=== PATIENT | female | born 1995 | race Two or more races ===

== ENCOUNTER 2017-05-14 18:13 | Outpatient (CLI) | payer MEDICAID ==
[~2017-05-14] VITALS: Ht 147.3 cm; Wt 64.5 kg
[~2017-05-14 18:13] MED LIST: ONDA4TAB10 PO; PREN1TAB47 PO
[2017-05-14 18:50] VITALS: BP 104/57
== END 2017-05-14 20:08 | disposition home or self-care (01) ==
LOC: LDOP 18:13
PROVIDERS: ATTEND Obstetrics & Gynecology
DX: O26.892 Other specified pregnancy related conditions, second trimester (principal); R10.9 Unspecified abdominal pain; Z3A.27 27 weeks gestation of pregnancy
CPT/HCPCS: 59025; 81001; 87086; 99201; G0463

== ENCOUNTER 2017-07-18 10:56 | Outpatient (CLI) | payer MEDICAID ==
[~2017-07-18] VITALS: Ht 147.3 cm; Wt 70.5 kg
[2017-07-18 11:11] VITALS: BP 119/67
[2017-07-18 13:21] LABS: BASOPHILS # (AUTO) 0.03 x10^3/uL (0-0.1); BASOPHILS % (AUTO) 0 % (0-1); EOSINOPHILS % (AUTO) 0 % (1-7); LYMPHOCYTES # (AUTO) 0.92 x10^3/uL (1-3.4); LYMPHOCYTES % (AUTO) 13 % (22-44); MD NO; MEAN CORPUSCULAR HEMOGLOBIN 28.2 pg (27.0-34.8); MEAN CORPUSCULAR HGB CONC 32.8 g/dL (32.4-35.8); MEAN CORPUSCULAR VOLUME 85.9 fL (80-100); MEAN PLATELET VOLUME 9.5 fL (7.4-10.4); MONOCYTES # (AUTO) 0.56 x10^3/uL (0.2-0.8); MONOCYTES % (AUTO) 8 % (2-9); NEUTROPHILS # (AUTO) 5.62 x10^3/uL (1.8-6.8); NEUTROPHILS % (AUTO) 79 % (42-75); PLATELET COUNT 197 x10^3/uL (130-400); RED BLOOD COUNT 4.04 x10^6/uL (3.82-5.3); RED CELL DISTRIBUTION WIDTH 14.5 % (9.6-15.2)
[2017-07-18 13:31] LABS: ALANINE AMINOTRANSFERASE 12 U/L (12-78); ALBUMIN 2.4 g/dL (3.4-5.0); ANION GAP 8 mmol/L (5-15); CALCIUM 8.2 mg/dL (8.5-10.1); CHLORIDE 108 mmol/L (98-107); CREATININE 0.49 mg/dL (0.55-1.02)
[2017-07-18 13:32] LABS: CULTURE INDICATED? YES; MICROSCOPIC INDICATED
[2017-07-18 13:33] LABS: ALKALINE PHOSPHATASE 163 U/L (45-117); BILIRUBIN,TOTAL 0.4 mg/dL (0.2-1.0); TOTAL PROTEIN 6.7 g/dL (6.4-8.2)
[2017-07-18 13:50] LABS: RAPID INFLUENZA A POSITIVE (Negative); RAPID INFLUENZA B Negative (Negative)
== END 2017-07-18 14:46 | disposition home or self-care (01) ==
LOC: LDOP 10:56
PROVIDERS: ATTEND Obstetrics & Gynecology
DX: O42.913 Preterm premature rupture of membranes, unspecified as to length of time between rupture and onset of labor, third trimester (principal); Z3A.36 36 weeks gestation of pregnancy
CPT/HCPCS: 36415; 59025; 80053; 81001; 85025; 87086; 87400; 89060; 99211; G0463; Q0114

== ENCOUNTER 2017-08-03 04:54 | Inpatient (IN) | payer MEDICAID ==
[~2017-08-03] VITALS: Ht 147.3 cm; Wt 71.4 kg
[2017-08-03] MEDS ORDERED: NEWBORN KIT ONE (04:56)
[2017-08-03] MEDS ORDERED: OXYTOCIN 30U/ 0.9% NaCL 500ML 500 ML IV PRN (04:57)
[2017-08-03] MEDS ORDERED: OXYTOCIN 30U/ 0.9% NaCL 500ML 500 ML ONE (04:57)
[2017-08-03] MEDS: D5%-LACTATED RINGERS 1,000 ML IV SCH ×3 (04:57→20:34)
[2017-08-03] MEDS ORDERED: OXYTOCIN 30U/ 0.9% NaCL 500ML 500 ML IV ONE (04:57)
[2017-08-03] MEDS ORDERED: PENICILLIN GK 5,000,000 UNITS in DEXTROSE 5% 100 ML IVPB ONE (05:00)
[2017-08-03] MEDS ORDERED: ONDANSETRON 2MG/ML, 2ML IVPush PRN ×2 (05:00→11:30)
[2017-08-03] MEDS ORDERED: TERBUTALINE 1 MG/ML, 1ML IVPush PRN (05:00)
[2017-08-03] MEDS ORDERED: CALCIUM CARBONATE 500 MG TAB.CHEW PO PRN (05:00)
[2017-08-03] MEDS ORDERED: SODIUM CITRATE/CITRIC ACID 30 ML UDC PO PRN (05:00)
[2017-08-03] MEDS ORDERED: FENTANYL PF 100 MCG/2ML IVPush PRN (05:00)
[2017-08-03] MEDS ORDERED: FENTANYL PF 100 MCG/2ML IV PRN (05:00)
[2017-08-03] MEDS ORDERED: METOCLOPRAMIDE 5 MG/ML, 2ML IVPush PRN (05:00)
[2017-08-03] MEDS: LACTATED RINGERS 1,000 ML IV SCH ×2 (05:29→12:57)
[2017-08-03 05:51] LABS: BASOPHILS # (AUTO) 0.03 x10^3/uL (0-0.1); BASOPHILS % (AUTO) 0 % (0-1); EOSINOPHILS # (AUTO) 0.09 x10^3/uL (0-0.4); EOSINOPHILS % (AUTO) 1 % (1-7); LYMPHOCYTES # (AUTO) 2.31 x10^3/uL (1-3.4); LYMPHOCYTES % (AUTO) 32 % (22-44); MD NO; MEAN CORPUSCULAR HEMOGLOBIN 27.5 pg (27.0-34.8); MEAN CORPUSCULAR HGB CONC 32.6 g/dL (32.4-35.8); MEAN CORPUSCULAR VOLUME 84.3 fL (80-100); MEAN PLATELET VOLUME 9.9 fL (7.4-10.4); MONOCYTES # (AUTO) 0.64 x10^3/uL (0.2-0.8); MONOCYTES % (AUTO) 9 % (2-9); NEUTROPHILS # (AUTO) 4.28 x10^3/uL (1.8-6.8); NEUTROPHILS % (AUTO) 58 % (42-75); PLATELET COUNT 220 x10^3/uL (130-400); RED BLOOD COUNT 3.98 x10^6/uL (3.82-5.3); RED CELL DISTRIBUTION WIDTH 15.1 % (9.6-15.2)
[2017-08-03 05:53] VITALS: BP 123/76
[2017-08-03] MEDS: PENICILLIN GK 2,500,000 UNITS in DEXTROSE 5% 100 ML IV SCH ×4 (09:45→21:52)
[2017-08-03] MEDS ORDERED: BUPIVACAINE 0.25% ONE (10:35)
[2017-08-03] MEDS ORDERED: FENTANYL PF 100 MCG/2ML ONE (10:35)
[2017-08-03] MEDS ORDERED: FENTANYL/BUPIV./NS/PF 250 ML EPIDCONT ONE (10:36)
[2017-08-03] MEDS ORDERED: LIDOCAINE/PF 1.5%-EPI 1:200K, 30ML ONE (10:40)
[2017-08-03] MEDS ORDERED: FENTANYL/BUPIV./NS/PF 250 ML EPIDCONT SCH (11:09)
[2017-08-03] MEDS ORDERED: LACTATED RINGERS 1,000 ML IV SCH (11:09)
[2017-08-03] MEDS ORDERED: LACTATED RINGERS 1,000 ML IVBOLUS PRN (11:30)
[2017-08-03] MEDS ORDERED: EPHEDRINE 50 MG/ML, 1ML IVPush PRN (11:30)
[2017-08-03] MEDS ORDERED: ACETAMINOPHEN 325 MG TABLET ONE (20:28)
[2017-08-03] MEDS ORDERED: ACETAMINOPHEN 325 MG TABLET PO ONE (20:30)
[2017-08-04] MEDS ORDERED: IBUPROFEN 600 MG TABLET ONE (00:56)
[2017-08-04] MEDS ORDERED: ONDANSETRON 2MG/ML, 2ML IV PRN (01:00)
[2017-08-04] MEDS ORDERED: METHYLERGONOVINE 0.2 MG/ML IM PRN (01:00)
[2017-08-04] MEDS ORDERED: MISOPROSTOL 200 MCG TABLET PR PRN (01:00)
[2017-08-04] MEDS ORDERED: OXYcodone/APAP 5/325MG TABLET PO PRN (01:00)
[2017-08-04] MEDS ORDERED: CALCIUM CARBONATE 500 MG TAB.CHEW PO PRN (01:00)
[2017-08-04] MEDS: IBUPROFEN 600 MG TABLET PO PRN ×3 (01:00→19:24)
[2017-08-04] MEDS ORDERED: OXYTOCIN 30U/ 0.9% NaCL 500ML 500 ML ONE (01:48)
[2017-08-04] MEDS: OXYTOCIN 30U/ 0.9% NaCL 500ML 500 ML IV SCH ×3 (01:56→20:46)
[2017-08-04 03:00] VITALS: BP 117/59
[2017-08-04 08:49] LABS: MEAN CORPUSCULAR HEMOGLOBIN 27.8 pg (27.0-34.8); MEAN CORPUSCULAR HGB CONC 32.7 g/dL (32.4-35.8); MEAN PLATELET VOLUME 9.9 fL (7.4-10.4); PLATELET COUNT 192 x10^3/uL (130-400); RED BLOOD COUNT 3.53 x10^6/uL (3.82-5.3); RED CELL DISTRIBUTION WIDTH 15.8 % (9.6-15.2)
[2017-08-04 08:53] VITALS: BP 116/59
[2017-08-04] MEDS: DOCUSATE 100 MG CAPSULE PO PRN ×2 (08:54→19:24)
[2017-08-04] MEDS: PRENATAL VIT/IRON/FA 1 EACH TABLET PO SCH (08:54)
[2017-08-04 09:31] LABS: BASOPHILS # (AUTO) 0.07 x10^3/uL (0-0.1); BASOPHILS % (AUTO) 0 % (0-1); EOSINOPHILS # (AUTO) 0.05 x10^3/uL (0-0.4); EOSINOPHILS % (AUTO) 0 % (1-7); LYMPHOCYTES # (AUTO) 2.24 x10^3/uL (1-3.4); LYMPHOCYTES % (AUTO) 12 % (22-44); MD SCAN; MONOCYTES # (AUTO) 1.16 x10^3/uL (0.2-0.8); MONOCYTES % (AUTO) 6 % (2-9); NEUTROPHILS # (AUTO) 15.64 x10^3/uL (1.8-6.8); NEUTROPHILS % (AUTO) 82 % (42-75)
[2017-08-04 12:39] VITALS: BP 117/67
[2017-08-04 17:02] VITALS: BP 115/63
[2017-08-04 19:20] VITALS: BP 126/78
[2017-08-05 00:10] VITALS: BP 125/69
[2017-08-05] MEDS: IBUPROFEN 600 MG TABLET PO PRN ×2 (06:04→17:54)
[2017-08-05 07:32] VITALS: BP 110/70
[2017-08-05] MEDS: PRENATAL VIT/IRON/FA 1 EACH TABLET PO SCH (07:32)
[2017-08-05] MEDS: DOCUSATE 100 MG CAPSULE PO PRN (07:32)
[2017-08-05] MEDS: OXYcodone/APAP 5/325MG TABLET PO PRN ×2 (07:45→17:54)
[2017-08-05 19:25] VITALS: BP 111/63
[2017-08-06] MEDS: OXYcodone/APAP 5/325MG TABLET PO PRN ×2 (00:53→10:22)
[2017-08-06] MEDS: IBUPROFEN 600 MG TABLET PO PRN ×2 (00:53→10:23)
[2017-08-06 07:30] VITALS: BP 112/70
[2017-08-06] MEDS: DOCUSATE 100 MG CAPSULE PO PRN (10:22)
[2017-08-06] MEDS: PRENATAL VIT/IRON/FA 1 EACH TABLET PO SCH (10:22)
[2017-08-06] MEDS ORDERED: IBUP-1222 PO (10:49)
[2017-08-06] MEDS ORDERED: OXYC-302 PO (10:49)
[2017-08-06] MEDS ORDERED: DOCU-131 PO (10:50)
[2017-08-06] MEDS ORDERED: FERR324T18 PO (10:51)
== END 2017-08-06 12:30 | disposition home or self-care (01) | DRG 775 ==
LOC: LDIP 04:54 → 2NW 08-04 02:29
PROVIDERS: ADMIT Obstetrics & Gynecology; ATTEND Obstetrics & Gynecology
PROC: 10H07YZ Insertion of Other Device into Products of Conception, Via Natural or Artificial Opening (ICD-10-PCS; principal; 2017-08-04)
PROC: 10E0XZZ Delivery of Products of Conception, External Approach (ICD-10-PCS; 2017-08-04)
PROC: 3E0R3BZ Introduction of Anesthetic Agent into Spinal Canal, Percutaneous Approach (ICD-10-PCS; 2017-08-04)
PROC: 00HU33Z Insertion of Infusion Device into Spinal Canal, Percutaneous Approach (ICD-10-PCS; 2017-08-04)
PROC: 10907ZC Drainage of Amniotic Fluid, Therapeutic from Products of Conception, Via Natural or Artificial Opening (ICD-10-PCS; 2017-08-04)
PROC: 3E033VJ Introduction of Other Hormone into Peripheral Vein, Percutaneous Approach (ICD-10-PCS; 2017-08-04)
DX: O76 Abnormality in fetal heart rate and rhythm complicating labor and delivery (principal); O69.81X0 Labor and delivery complicated by cord around neck, without compression, not applicable or unspecified; Z37.0 Single live birth; O99.824 Streptococcus B carrier state complicating childbirth; Z3A.39 39 weeks gestation of pregnancy; O71.89 Other specified obstetric trauma
CPT/HCPCS: 36415; 82803; 85025; 86850; 86900; J2540; J3010; J3490; J2590; J7120; J7121

== ENCOUNTER 2020-07-31 21:30 | Emergency (ER) | payer MEDICAID ==
[~2020-07-31] VITALS: Ht 147.3 cm; Wt 69.5 kg
[~2020-07-31 21:30] MED LIST changes: +DOCU-131 PO; +FERR324T18 PO; +IBUP-1222 PO; +OXYC-302 PO; -PREN1TAB47 PO; +PRENATAL ONE T1 EACH PO
[2020-07-31] MEDS ORDERED: FAMOTIDINE 20 MG TABLET ONE (21:49)
[2020-07-31] MEDS ORDERED: DIPHENHYDRAMINE 25 MG CAPSULE ONE (21:49)
[2020-07-31] MEDS ORDERED: EPINEPHRINE 1 MG/ML, 1ML ONE (21:49)
--- NOTE | 2020-07-31 21:58 | NUR ---
MEDS ADMIN PER SEP. PT DENIES THROAT SWELLING, TROUBLE BREATHING. PT CONNECTED TO MONITORING.
[2020-07-31] MEDS ORDERED: DIPHENHYDRAMINE 25 MG CAPSULE PO ONE (22:00)
[2020-07-31] MEDS ORDERED: FAMOTIDINE 20 MG TABLET PO ONE (22:00)
[2020-07-31] MEDS ORDERED: EPINEPHRINE 1 MG/ML, 1ML SQ ONE (22:00)
--- NOTE | 2020-07-31 22:31 | NUR ---
PT STATES SHE FEELS BETTER. NO ITCHING. CHART UP FOR RECHECK.
[2020-07-31 22:32] VITALS: BP 107/67
== END 2020-07-31 22:59 | disposition home or self-care (01) ==
LOC: ED 22:00
DX: T78.40XA Allergy, unspecified, initial encounter (principal); L50.9 Urticaria, unspecified; X58.XXXA Exposure to other specified factors, initial encounter
CPT/HCPCS: 96372; 99284; J0171; J7512; Q0163

== ENCOUNTER 2020-08-08 12:31 | Emergency (ER) | payer MEDICAID ==
[~2020-08-08] VITALS: Ht 147.3 cm; Wt 66.5 kg
[~2020-08-08 12:31] MED LIST changes: -OXYC-302 PO; +OXYC1TAB14 PO
--- NOTE | 2020-08-08 13:16 | NUR ---
PT AMBULATORY TO ROOM 14 W/ C/O "I'M AND I'M CRAMPING AND BLEEDING BRIGHT RED". 6 WEEKS . LMP 07/02/2020. A0. PT CURRENTLY RESTING ON [employer]. WARM BLANKET PROVIDED.
[2020-08-08 13:43] LABS: MICROSCOPIC NOT IND
--- NOTE | 2020-08-08 14:16 | NUR ---
PT RESTING ON GURNEY. NADN. GASPAR.
--- NOTE | 2020-08-08 14:22 | NUR ---
PT CHART REVIEWED AND PLACED FOR RECHECK.
[2020-08-08 15:15] VITALS: BP 115/64
--- NOTE | 2020-08-08 15:17 | NUR ---
THIS FLOAT RN AT BEDSIDE TO DC PT FOR PRIMARY RN, ELENO. MISCARRIAGE BUNDLE PROVIDED TO PATIENT AND SPOUSE. SPIRITUAL CARE CONSULT DISCUSSED - PT AND SPOUSE INTERESTED. ORDERED PER PROTOCOL. PT AMBULATORY TO CHECKOUT C STEADY GAIT. VSS.
== END 2020-08-08 15:19 | disposition home or self-care (01) ==
LOC: ED 15:00
DX: O03.9 Complete or unspecified spontaneous abortion without complication (principal); R11.0 Nausea
CPT/HCPCS: 36415; 76801; 81003; 84702; 99284

== ENCOUNTER 2020-08-14 19:38 | Observation (INO) | payer MEDICAID ==
[~2020-08-14] VITALS: Ht 147.3 cm; Wt 67.5 kg
--- NOTE | 2020-08-14 20:38 | NUR ---
Patient presents to ER c/o abd cramping since Monday after a miscarriage. Patient states she has been able to reduce the pain with ibuprofen until today when she has been unable. She also started having N/V today. Denies nausea at this time. Patient is in NAD. Respirations even and unlabored.
[2020-08-14] MEDS ORDERED: KETOROLAC 30 MG/1 ML ONE (20:40)
[2020-08-14] MEDS ORDERED: ONDANSETRON ODT 4 MG ONE (20:40)
[2020-08-14] MEDS ORDERED: ONDANSETRON ODT 4 MG PO ONE (21:00)
[2020-08-14] MEDS ORDERED: KETOROLAC 30 MG/1 ML IM ONE (21:00)
[2020-08-14 21:35] LABS: BASOPHILS % (AUTO) 1 % (0-1); EOSINOPHILS % (AUTO) 0 % (1-7); LYMPHOCYTES % (AUTO) 12 % (22-44); MEAN CORPUSCULAR HEMOGLOBIN 30.9 pg (27.0-34.8); MEAN CORPUSCULAR HGB CONC 34.2 g/dL (32.4-35.8); MEAN PLATELET VOLUME 9.1 fL (7.4-10.4); MONOCYTES % (AUTO) 4 % (2-9); NEUTROPHILS % (AUTO) 83 % (42-75); PLATELET COUNT 263 x10^3/uL (130-400); RED BLOOD COUNT 3.88 x10^6/uL (3.82-5.3)
[2020-08-14 21:38] LABS: MD NO
[2020-08-14 21:42] LABS: ALBUMIN 3.7 g/dL (3.4-5.0); ANION GAP 8 mmol/L (5-15); CALCIUM 8.7 mg/dL (8.5-10.1); CHLORIDE 111 mmol/L (98-107)
[2020-08-14 21:48] LABS: CREATININE 0.62 mg/dL (0.55-1.02)
[2020-08-14 21:56] LABS: MICROSCOPIC INDICATED
[2020-08-14] MEDS ORDERED: SODIUM CHLORIDE FLUSH 10ML SYR IVF ONE (22:00)
[2020-08-14] MEDS ORDERED: SODIUM CHLORIDE 0.9% 1,000 ML IV ONE (22:00)
[2020-08-15] MEDS ORDERED: LABETALOL 5MG/ML, 20ML IV PRN (01:00)
[2020-08-15] MEDS ORDERED: OXYcodone 5 MG/5 ML ORAL.SOL UDC PO PRN (01:00)
[2020-08-15] MEDS ORDERED: hydrALAzine 20 MG/ML, 1ML IV PRN (01:00)
[2020-08-15] MEDS ORDERED: DIPHENHYDRAMINE 50 MG/ML, 1ML IVPush PRN (01:00)
[2020-08-15] MEDS ORDERED: HYDROmorphone 1 MG/ML, 1ML INJ IVPush PRN (01:00)
[2020-08-15] MEDS ORDERED: PROMETHAZINE 25 MG/ML, 1ML IVPush PRN (01:00)
[2020-08-15] MEDS ORDERED: FENTANYL PF 100 MCG/2ML IV PRN (01:00)
[2020-08-15] MEDS ORDERED: MEPERIDINE/PF 25MG/0.5ML IVPush PRN (01:00)
[2020-08-15] MEDS ORDERED: HALOPERIDOL 5 MG/ML IV PRN (01:00)
[2020-08-15] MEDS ORDERED: MIDAZOLAM 1 MG/ML, 2ML ONE (01:05)
[2020-08-15] MEDS ORDERED: FENTANYL PF 250 MCG/5ML ONE (01:05)
[2020-08-15] MEDS ORDERED: EPINEPHRINE 1 MG/ML, 1ML ONE (01:08)
[2020-08-15] MEDS ORDERED: BUPIVACAINE/PF 0.25% ONE (01:08)
[2020-08-15] MEDS ORDERED: BUPIVACAINE/PF 0.5% ONE (01:08)
[2020-08-15] MEDS ORDERED: DEXAMETHASONE 4 MG/ML, 1ML ONE (01:16)
[2020-08-15] MEDS ORDERED: SUCCINYLCHOLINE 20 MG/ML, 10ML ONE (02:02)
[2020-08-15] MEDS ORDERED: SUGAMMADEX 200 MG/2 ML IVPush ONE (02:02)
[2020-08-15] MEDS ORDERED: ONDANSETRON 2MG/ML, 2ML ONE (02:02)
[2020-08-15] MEDS ORDERED: GLYCOPYRROLATE 0.2MG/1ML, 5ML ONE (02:02)
[2020-08-15] MEDS ORDERED: ROCURONIUM 10MG/ML,5ML ONE (02:02)
[2020-08-15] MEDS ORDERED: CEFAZOLIN 1,000 MG ONE (02:02)
[2020-08-15] MEDS ORDERED: PROPOFOL 10 MG/ML, 20ML ONE (02:02)
[2020-08-15] MEDS ORDERED: NEOSTIGMINE 1 MG/ML, 10ML ONE (02:02)
[2020-08-15] MEDS ORDERED: OXYcodone/APAP 5/325MG TABLET PO PRN (02:30)
[2020-08-15] MEDS ORDERED: LACTATED RINGERS 1,000 ML IV SCH (02:30)
[2020-08-15] MEDS ORDERED: ONDANSETRON 2MG/ML, 2ML IVPush PRN (02:30)
[2020-08-15] MEDS ORDERED: morphine SULFATE 10 MG/ML, 1ML IVPush PRN (02:30)
[2020-08-15] MEDS ORDERED: KETOROLAC 30 MG/1 ML IVPush PRN (02:30)
[2020-08-15] MEDS ORDERED: MEPERIDINE/PF 25MG/ML,1ML ONE (02:39)
[2020-08-15] MEDS ORDERED: IBUP1TAB5 PO (02:39)
[2020-08-15] MEDS ORDERED: OXYC-302 PO (02:39)
[2020-08-15 06:00] VITALS: BP 100/66
[2020-08-15] MEDS ORDERED: IBUPROFEN 600 MG TABLET PO SCH (06:00)
[2020-08-15 06:46] VITALS: BP 104/68
== END 2020-08-15 07:12 | disposition home or self-care (01) ==
LOC: ED 21:50 → EDIP 23:59 → INTOOBSV 23:59 → 4NE 08-15 03:12
PROVIDERS: ADMIT Obstetrics & Gynecology; ATTEND Obstetrics & Gynecology
DX: R19.09 Other intra-abdominal and pelvic swelling, mass and lump (principal); Z20.822 Contact with and (suspected) exposure to COVID-19; R10.9 Unspecified abdominal pain; O00.201 Right ovarian pregnancy without intrauterine pregnancy; N83.291 Other ovarian cyst, right side; K66.1 Hemoperitoneum; Z79.899 Other long term (current) drug therapy; Z67.90 Unspecified blood type, Rh positive
CPT/HCPCS: 36415; 58661; 76830; 80048; 81001; 82040; 84702; 85025; 87086; 87635; 88112; 88305; 93005; 96372; 96374; 96375; 99285; G0378; J0171; J0330; J0690; J1885; J2175; J2250; J2405; J2704; J3010; J7030; Q0162; 84703; J1100; J2710